=== PATIENT | female | born 1965 | race Caucasian/White ===

== ENCOUNTER 2022-11-04 09:13 | Observation (INO) | payer OTHER, SELFPAY ==
[2022-11-04] VITALS (9 sets, daily range): BP systolic 121–136; BP diastolic 70–77; PULSE 59–84; RESP 14–25; TEMP 36.2–37; O2SAT 95–98; BMI 31.6; BMI 31.0
--- NOTE | 2022-11-04 09:57 | EKG12_ITS ---
Test Reason : Blood Pressure : / mmHG Vent. Rate : 074 BPM Atrial Rate : 074 BPM P-R Int : 132 ms QRS Dur : 084 ms QT Int : 406 ms P-R-T Axes : 055 -01 043 degrees QTc Int : 450 ms Normal sinus rhythm Normal ECG Confirmed by KIRSTIN SANDERSON, KAYE ([id number]), food expeditor OSIEL CALLOWAY ([id number]) on 11/07/2022 1:13:19 PM Referred By: VIRAJ Confirmed By:ELLYN FULTON MD
[2022-11-04 09:58] LABS: Bedside Glucose 152 mg/dL (74-106)
--- NOTE | 2022-11-04 09:59 | EX.ED.DYSGE1 ---
HPI History of Present Illness Chief Complaint: Syncope Detail of Chief Complaint: Syncope Informant: patient Narrative Narrative: Patient presents emerged department with syncopal episode. 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 Patient states that she sat down and had an episode where she became unresponsive. EMS was called. EMS initially noted some hypotension. Patient states that she had a procedure where she had an injection in her hip 4 days ago where she had a similar episode. Patient denies chest pain. She denies recent travel or surgery. No prior episodes of syncope. Patient has had prior hysterectomy. [facility] Medical History Hypothyroid Medical History no medical history Home Medications clonidine HCl 0.2 mg tablet 0.2 mg PO QHS 11/04/22 [History Last Taken 11/03/22] levothyroxine 112 mcg tablet 112 mcg PO DAILY 11/04/22 [History Last Taken 11/04/22] rosuvastatin 10 mg tablet 10 mg PO DAILY 11/04/22 [History Last Taken 11/03/22] terbinafine HCl 250 mg tablet 250 mg PO DAILY 11/04/22 [History Last Taken 11/04/22] Allergy/AdvReac Type Severity Reaction Status Date / Time ciprofloxacin [From Cipro] Allergy Unknown PT UNSURE Verified 11/04/22 09:14 OF REACTION Social History Smoking Status: Never smoker ROS ROS ED Review of Systems ROS Unobtainable: other Constitutional Constitutional ED: Reports lethargy; Denies chills, fever(s), sweats or weight loss Eyes Eyes: Denies blurry vision, change in vision or diplopia ENT ENT ED: Denies rhinorrhea or sore throat Cardiovascular Cardiovascular: Reports racing heartbeat; Denies chest pain or orthopnea Respiratory/Chest Respiratory/Chest: Denies cough, dyspnea, dyspnea on exertion, orthopnea or sputum Gastrointestinal Gastrointestinal: Denies abdominal pain, diarrhea, nausea or vomiting Genitourinary Genitourinary ED: Denies dysuria, hematuria or urinary frequency Musculoskeletal Musculoskeletal: Denies arthralgias, back pain, myalgias or neck pain Integumentary Denies abscess, Abrasions or rash Neurologic Neurologic: Reports other Details: Syncope ; Denies headache(s) or weakness Psychiatric Psychiatric: Denies anxiety, depression or suicidal thoughts Endocrine Endocrinology: Denies polydipsia, polyphagia or polyuria Hematologic/Lymphatic Hematologic/Lymphatic: Denies easy bleeding, easy bruising or lymphadenopathy Allergic/Immunologic Allergic/Immunologic ED: Denies mouth swelling, tongue swelling or urticaria EXAM Physical Exam Const Vital Signs: 11/04/22 09:15 11/04/22 09:17 11/04/22 10:07 Temperature 97.6 F L Temperature Source Temporal Pulse Rate 77 Pulse Rate [Lying] 84 Pulse Rate [Sitting (for 1 minute prior to obtaining)] 78 Respiratory Rate 20 H Respiratory Effort Normal Non-Labored Blood Pressure 128/71 H Blood Pressure [Lying] 132/77 H Blood Pressure [Sitting (for 1 minute prior to obtaining)] 128/76 H Blood Pressure Mean 90 Blood Pressure Mean [Lying] 95 Blood Pressure Mean [Sitting (for 1 minute prior to obtaining)] 93 Pulse Ox 97 Oxygen Delivery Method Room Air 11/04/22 11:29 Temperature Temperature Source Pulse Rate 76 Pulse Rate [Lying] Pulse Rate [Sitting (for 1 minute prior to obtaining)] Respiratory Rate 18 Respiratory Effort Blood Pressure 133/76 H Blood Pressure [Lying] Blood Pressure [Sitting (for 1 minute prior to obtaining)] Blood Pressure Mean 95 Blood Pressure Mean [Lying] Blood Pressure Mean [Sitting (for 1 minute prior to obtaining)] Pulse Ox 97 Oxygen Delivery Method Positive well nourished and well developed General Appearance ED: well developed and NAD HEENT Reports TM's clear and moist mucous membranes normocephalic and atraumatic; Negative for trauma or tenderness Tympanic Membrane ED: Yes TM's clear Eyes PERRL and EOMs intact bilaterally General Eye ED: Negative for pale conjunctiva or scleral icterus Neck no lymphadenopathy, supple and no JVD General: Negative for tenderness Chest Wall inspection of chest normal and palpation of chest normal Chest: Negative for tenderness Resp normal respiratory effort and clear to auscultation bilaterally Effort and Inspection: Negative for respiratory distress or pain with movement Auscultation: Negative for rhonchi, wheezes or diminished lung sounds Cardio regular rate, regular rhythm, S1 normal heart sound, S2 normal heart sound and no murmurs Peripheral Pulses: pulses 2+ throughout GI normal to inspection, nondistended, normoactive bowel sounds, soft to palpation, non-tender, non-distended and no masses Back/Spine no CVA tenderness and no thoracic nor lumbar tenderness Extremity normal to inspection General Extremety ED: Negative for edema General Extremity: Negative for edema Neuro oriented x3, CN's II-XII intact bilaterally, no sensory deficits noted and gait normal Sensorium / Orientation: awake, alert, oriented to person, oriented to place and oriented to time Motor Exam: strength 5/5 throughout and strength abnormal Psych mental status grossly normal Skin no rashes or lesions noted and no wounds MDM MDM MDM Narrative Medical decision making narrative: Patient presents to the emergency department with a syncopal episode. In the differential would be dysrhythmia versus vasovagal episode versus PE versus infectious etiology. IV line established. Patient placed on a lunchroom monitor. EKG obtained arrival showed a sinus rhythm with a rate of 74 bpm with no acute ST segment changes. CBC with differential showed an elevated white count of 12.8 which I suspect is likely related to recent steroid injection in her hip. Troponin was normal. D-dimer was normal. We attempted orthostatic blood pressures but she was too dizzy to stand. She was given a liter normal saline fluid bolus. Clinically there is no evidence of nystagmus therefore I do not suspect benign positional vertigo. She still complains of feeling like her heart is racing at times. Case was discussed with hospitalist will evaluate patient for admission Lab Data Attestation: I reviewed the patient's lab results. Labs: Laboratory Results - last 24 hr 11/04/22 11/04/22 09:30 09:39 WBC 12.8 H RBC 4.79 Hgb 13.9 Hct 43.4 MCV 90.6 MCH 29.0 MCHC 32.0 RDW Std Deviation 45.6 H RDW Coeff of Walter 13.6 Plt Count 330 MPV 9.7 Immature Gran % (Auto) 1.000 H Neut % (Auto) 75.6 H Lymph % (Auto) 13.8 L [place] % (Auto) 8.3 Eos % (Auto) 0.7 Baso % (Auto) 0.6 Absolute Neuts (auto) 9.7 H Absolute Lymphs (auto) 1.77 Nucleated RBC % 0 D-Dimer Quant (PE/DVT) < 0.27 L Sodium 135 L Potassium 4.2 Chloride 104 Carbon Dioxide 25.0 Anion Gap 6 BUN 26 H Creatinine 1.01 Estim Creat Clear Calc 51.45 Est GFR (MDRD) Af Amer 73 Est GFR (MDRD) Non-Af 60 BUN/Creatinine Ratio 25.7 H Glucose 138 H Calcium 8.9 Troponin I High Sens < 3 L POC Glucose 152 H Radiography Diagnostic Testing: Clinical Impression(s) from Imaging Studies Chest X-Ray 11/04/22 10:15 IMPRESSION: Mild increased markings at the left lung base suggestive of either linear atelectasis and/or scarring. Healed left-sided rib fractures. Electronically Signed: Varun Collins MD at 10:52 EDT , 1 view chest x-ray obtained interpreted by myself as no evidence of infiltrate or pneumothorax or acute disease process. Radiology was in agreement however they did note left lung base increased markings suggestive of either linear atelectasis and or scarring. Patient also noted to have healed left-sided rib fractures. EKG Initial EKG: Attestation: I personally reviewed and interpreted this EKG as follows: Comments: Sinus rhythm with a rate of 74 bpm with no acute ST segment changes Discharge Plan Dx/Rx/DC Orders Clinical Impression: Dizziness, Syncope Disposition Disposition: Acute Care [facility] Discharge Date/Time: 11/04/22 12:56
[2022-11-04] MEDS: 0.9% Normal Saline 1,000 ML 1000 ML IV (10:03)
[2022-11-04 10:05] LABS: Absolute Lymphocyte Count 1.77 X10^3/uL (0.83-4.51); Absolute Neutrophil Count 9.7 X10^3/uL (2.0-7.7); Basophil# 0.08 X10^3/uL; Basophil% 0.6 % (0-1); Eosinophil# 0.09 X10^3/uL; Eosinophils% 0.7 % (0-5); Hematocrit 43.4 % (37-47); Hemoglobin 13.9 g/dL (12.0-15.0); Lymphocyte # 1.77 X10^3/ul (0.83-4.51); Lymphocyte % 13.8 % (19-41); Mean Corpuscular Volume 90.6 fL (81-99); Mean Platelet Vol. 9.7 fl (6.2-12.0); Monocyte# 1.07 X10^3/uL; Monocyte% 8.3 % (0-10); NRBC Flagged by Analyzer 0 % (0-5); Neutrophil % 75.6 % (47-70); Platelet Count 330 K/mm3 (150-450); RBC Distribution Width CV 13.6 % (11.6-14.6); RBC Distribution Width SD 45.6 fl (35.1-43.9); Red Blood Count 4.79 M/mm3 (4.2-5.4); White Blood Count 12.8 K/mm3 (4.4-11.0)
--- NOTE | 2022-11-04 10:15 | RAD_ITS ---
STUDY: X-RAY CHEST REASON FOR EXAM: Female, 57 years old. Syncopal episode. TECHNIQUE: Single AP portable view of the chest. COMPARISON: None. FINDINGS: EKG electrodes are seen. Hyperinflation. Mild increased markings at the left lung base suggestive of either linear scarring and/or atelectasis. There is no demonstrated pleural abnormality. Normal size heart. Normal mediastinum and yumi. Normal visualized pulmonary arteries. Normal visualized aortic arch and descending thoracic aorta. Normal visualized thoracic spine. Healed left rib fractures. There is no demonstrated abnormality of the visualized soft tissue structures of the upper abdomen. RAD/Chest 1 View (Portable) IMPRESSION: Mild increased markings at the left lung base suggestive of either linear atelectasis and/or scarring. Healed left-sided rib fractures. Electronically Signed: Varun Collins MD at 10:52 EDT ,
[2022-11-04 10:22] LABS: Anion Gap 6 (5-15); BUN 26 mg/dL (7-18); BUN/Creat Ratio 25.7 RATIO (10-20); Calcium,Total 8.9 mg/dL (8.5-10.1); Chloride 104 mmol/L (98-107); Creatinine, Serum 1.01 mg/dL (0.55-1.02); EST Glomerular Filtration Rate 60 mL/min (>60); Est Glom Filt Rate - Afr Amer 73 mL/min (>60); Estimated Creatinine Clearance 51.45 ml/min; Glucose 138 mg/dL (74-106); Potassium 4.2 mmol/L (3.5-5.1); Sodium Level 135 mmol/L (136-145); Troponin-I HS < 3 pg/mL (3.0-54.0)
[2022-11-04 10:32] LABS: D-Dimer Quantitative (DVT/PE) < 0.27 FEU/ug/m (0.27-0.49)
--- NOTE | 2022-11-04 12:46 | HP.PCM.HOS_ITS ---
HPI - General General Date of Admission: 11/04/22 Date of Service: 11/04/22 Chief Complaint: Lightheadedness, syncope HPI Narrative BISHNU GEE, is a 57 F with history of heart flashes on clonidine and hypothyroidism on Synthroid who presented to [facility] 11/04/2022 due to a syncopal episode. She endorses she was in her usual health until 1 week ago when she went to get a hip injection, she was laying down and while they were injecting her hip she began to feel lightheaded and dizzy and this persisted for roughly 10 minutes and then got her valdemar kasandra and a cool washcloth and it resolved. Then today she was at work standing up trying vaccines and began to feel lightheaded and dizzy and unwell and also felt like her heart was flip-flopping and she sat down on a chair and then lost consciousness for several seconds. She was told that her blood pressure was low and she is unsure how low. In the ED she was hesitant to do orthostatic vital signs and stand up due to being concerned she may be dizzy slowly laying and sitting were obtained which were negative. Patient given fluids and hospitalist consulted for admission. Patient evaluated with family at bedside and she reports presently not feeling like that. Reports occasionally feeling her heart skipped beats but before this and the previous episode she has never had any racing heart or problem with dizziness. Denies any chest pain or shortness of breath. Has not changed her caffeine intake, no new medicines or supplements. Denies alcohol, drugs. [facility] Medical History (Updated 11/04/22 @ 12:[address] Tamiko Callejas MD) Hypothyroid Medical History no medical history Home Medications clonidine HCl 0.2 mg tablet 0.2 mg PO QHS 11/04/22 [History Last Taken 11/03/22] levothyroxine 112 mcg tablet 112 mcg PO DAILY 11/04/22 [History Last Taken 11/04/22] rosuvastatin 10 mg tablet 10 mg PO DAILY 11/04/22 [History Last Taken 11/03/22] terbinafine HCl 250 mg tablet 250 mg PO DAILY 11/04/22 [History Last Taken 11/04/22] Allergy/AdvReac Type Severity Reaction Status Date / Time ciprofloxacin [From Cipro] Allergy Unknown PT UNSURE Verified 11/04/22 09:14 OF REACTION Social History Smoking Status: Never smoker ROS ROS Narrative General: Denies fever/chills HENT: Denies headache, denies stuffy nose, denies sore throat EYES: Denies changes in vision Resp: Denies cough, denies shortness of breath Cardiac: Denies chest pain GI: Denies abdominal pain, denies changes in bowel, denies nausea/vomiting : Denies changes in urination Extremity: Denies swelling MSK: Denies weakness Neuro: Denies any numbness/tingling Heme: Denies any bleeding or bruising Skin: Denies rashes Psychiatric: No complaints voiced Vital Signs Vital Signs Vital Signs: 11/04/22 09:15 11/04/22 09:17 11/04/22 10:07 Temperature 97.6 F L Temperature Source Temporal Pulse Rate 77 Pulse Rate [Lying] 84 Pulse Rate [Sitting (for 1 minute prior to obtaining)] 78 Respiratory Rate 20 H Respiratory Effort Normal Non-Labored Blood Pressure 128/71 H Blood Pressure [Lying] 132/77 H Blood Pressure [Sitting (for 1 minute prior to obtaining)] 128/76 H Blood Pressure Mean 90 Blood Pressure Mean [Lying] 95 Blood Pressure Mean [Sitting (for 1 minute prior to obtaining)] 93 Pulse Ox 97 Oxygen Delivery Method Room Air 11/04/22 11:29 11/04/22 11:49 11/04/22 12:10 Temperature 97.2 F L Temperature Source Temporal Pulse Rate 76 78 77 Pulse Rate [Lying] Pulse Rate [Sitting (for 1 minute prior to obtaining)] Respiratory Rate 18 17 25 H Respiratory Effort Blood Pressure 133/76 H 136/70 H 136/70 H Blood Pressure [Lying] Blood Pressure [Sitting (for 1 minute prior to obtaining)] Blood Pressure Mean 95 92 92 Blood Pressure Mean [Lying] Blood Pressure Mean [Sitting (for 1 minute prior to obtaining)] Pulse Ox 97 97 98 Oxygen Delivery Method Room Air Room Air Weight Weight: 81 kg Body Mass Index (BMI) 31.6 Physical Exam Narrative General: Alert, oriented, no apparent distress HEENT: Atraumatic, normocephalic Eyes: Anicteric, normal conjunctiva, extraocular movements grossly intact Neck: Supple Respiratory: Clear to auscultation bilaterally, normal respiratory effort Cardiovascular: Regular rate and rhythm GI: Soft, nontender, nondistended Extremities: No edema Musculoskeletal: Moving all extremities Neuro: No overt focal neurological deficits Skin: No rashes appreciated Psych: Cooperative Results Lab / Micro Data 11/04/22 09:30 11/04/22 09:30 Labs: Laboratory Results - last 24 hr 11/04/22 09:30: WBC 12.8 H, RBC 4.79, Hgb 13.9, Hct 43.4, MCV 90.6, MCH 29.0, MCHC 32.0, RDW Std Deviation 45.6 H, RDW Coeff of Walter 13.6, Plt Count 330, MPV 9.7, Immature Gran % (Auto) 1.000 H, Neut % (Auto) 75.6 H, Lymph % (Auto) 13.8 L , [place] % (Auto) 8.3, Eos % (Auto) 0.7, Baso % (Auto) 0.6, Absolute Neuts (auto) 9.7 H, Absolute Lymphs (auto) 1.77, Nucleated RBC % 0, D-Dimer Quant (PE/DVT) < 0.27 L, Sodium 135 L, Potassium 4.2, Chloride 104, Carbon Dioxide 25.0, Anion Gap 6, BUN 26 H, Creatinine 1.01, Estim Creat Clear Calc 51.45, Est GFR (MDRD) Af Amer 73, Est GFR (MDRD) Non-Af 60, BUN/Creatinine Ratio 25.7 H, Glucose 138 H , Calcium 8.9, Troponin I High Sens < 3 L 11/04/22 09:39: POC Glucose 152 H Radiology Impression Chest X-Ray 11/04/22 10:15 IMPRESSION: Mild increased markings at the left lung base suggestive of either linear atelectasis and/or scarring. Healed left-sided rib fractures. Electronically Signed: Varun Collins MD at 10:52 EDT , Assessment & Plan Assessment/Plan (1) Syncope: (2) Hypothyroid: PLAN: Plan #Lightheadedness and syncopal episode -Patient lost consciousness for several seconds and was told her blood pressure was low and also felt her heart flip-flop -Differential could be arrhythmia or vasovagal as this happened when she was both laying down and standing -Chest x-ray with some mild increased markings that may be atelectasis or scarring Troponin D-dimer normal -EKG sinus rhythm with rate of [address] segment changes -Admit to telemetry -We will obtain echocardiogram -Check TSH -Unable to obtain orthostats this patient refused in ED due to concern she would get dizzy #Hot flashes -Takes clonidine at home, will continue this nightly #Hypothyroidism -Continue Synthroid #DVT ppx: Low risk, ambulatory Tamiko Callejas MD Time spent in the patient's overall evaluation,decision-making process, review of diagnostic data, adjustment of management, discussion with other providers, nursing nursing and ancillary staff involved in patient's care documentation, 56 minutes Charges/Coding Visit Charges Inpatient E&M: 13007 Init Hosp L2
--- NOTE | 2022-11-04 13:34 | ECHOD_ITS ---
Reason For Study: SYNCOPE Procedure This was a 2D Doppler, Color Flow transthoracic echocardiogram. Exam performed portable in patient room. Left Ventricle Normal LV size. The estimated ejection fraction is 60 %. No evidence for diastolic dysfunction. No regional wall motion abnormalities noted. Right Ventricle Normal RV size. Normal systolic function. Atria Normal left atrium. Normal right atrium. No doppler evidence for ASD. Mitral Valve There is no mitral valve stenosis. Trivial mitral valve insufficiency. Tricuspid Valve There is no tricuspid stenosis. Trivial tricuspid valve insufficiency. Unable to estimate RV systolic pressure due to insufficient tricuspid regurgitant envelope. Aortic Valve Trisinus/trileaflet aortic valve. There is no aortic stenosis. No aortic valve insufficiency. Pulmonic Valve There is no pulmonic valvular stenosis. No pulmonic valve insufficiency. Great Vessels Normal aortic root. Pericardium/Pleural No pericardial effusion. MMode/2D Measurements & Calculations LVIDd: 4.1 cm IVSd: 0.73 cm Ao root diam: 3.2 cm LVIDs: 2.8 cm LVPWd: 0.84 cm RVDd: 3.1 cm FS: 33.1 % LAV(MOD-bp): 37.7 ml LVAd ap4: 27.6 cm2 SV(MOD-sp4): 52.2 ml LAV(MOD-bp) Indexed: 20.6 ml/m2 LVLd ap4: 7.6 cm LAV(MOD-sp2): 39.2 ml EDV(MOD-sp4): 79.5 ml LAV(MOD-sp4): 36.0 ml EDV(sp4-el): 85.0 ml LVAs ap4: 13.3 cm2 LVLs ap4: 5.7 cm ESV(MOD-sp4): 27.3 ml ESV(sp4-el): 26.4 ml EF(MOD-sp4): 65.6 % EF(sp4-el): 68.9 % SV(sp4-el): 58.6 ml LA A4 area: 14.4 cm2 LA dimension(2D): 3.3 cm RA A4 area: 12.1 cm2 Time Measurements MV dec time: 0.22 sec Doppler Measurements & Calculations MV E max tristian: 92.8 cm/sec Lat Peak E' Tristian: 18.2 cm/sec Med Peak E' Tristian: 13.5 cm/sec MV A max tristian: 95.3 cm/sec E/E' lat: 5.1 E/E' med: 6.9 MV E/A: 0.97 Ao V2 max: 122.8 cm/sec LV V1 max: 111.4 cm/sec PA V2 max: 93.7 cm/sec Ao max P.0 mmHg LV V1 max P.0 mmHg TR max tristian: 234.4 cm/sec TR max P.0 mmHg ECHO/Echo Complete Interpretation Summary The estimated ejection fraction is 60 %. No evidence for diastolic dysfunction. Trivial mitral valve insufficiency. Ordering Physician: Tamiko Callejas Referring Physician: ROBLES FRIED Performed By: Raquel Avelar, AVRIL
--- NOTE | 2022-11-04 17:19 | PCM.HOSP.N ---
Hospitalist Note Patient's echo fairly unremarkable, has sinus arrhythmia on telemetry and had burst of fast heart rate with QRS complex with different morphology on same strip, patient had no syncopal episode here in hospital during this brief burst but concerned that the 2 lightheaded episodes with this most recent episode with brief loss of consciousness may be arrhythmia related. Heart rate back and rhythm so this was not captured on EKG but was seen briefly on telemetry. Cardiology consulted
[2022-11-04] MEDS: Atorvastatin Calcium 20 MG Tablet PO (22:40)
[2022-11-04] MEDS: cloNIDine HCl 0.2 MG Tablet PO (22:40)
[2022-11-05 03:30] VITALS: BP 125/81; PULSE 62; RESP 18; TEMP 36.5; O2SAT 99
[2022-11-05] MEDS: Levothyroxine 112 MCG Tablet PO (06:07)
[2022-11-05 07:19] LABS: Absolute Lymphocyte Count 1.77 X10^3/uL (0.83-4.51); Basophil# 0.05 X10^3/uL; Basophil% 0.6 % (0-1); Eosinophil# 0.14 X10^3/uL; Eosinophils% 1.8 % (0-5); Lymphocyte # 1.77 X10^3/ul (0.83-4.51); Lymphocyte % 22.8 % (19-41); Mean Corp Hgb Conc 32.5 g/dL (32-36); Mean Corpuscular Hgb 29.5 pg (27.0-32.0); Mean Corpuscular Volume 90.7 fL (81-99); Mean Platelet Vol. 9.7 fl (6.2-12.0); Monocyte# 0.78 X10^3/uL; NRBC Flagged by Analyzer 0 % (0-5); Neutrophil % 64.4 % (47-70); Platelet Count 304 K/mm3 (150-450); RBC Distribution Width CV 14.1 % (11.6-14.6); RBC Distribution Width SD 46.9 fl (35.1-43.9); Red Blood Count 4.41 M/mm3 (4.2-5.4); White Blood Count 7.8 K/mm3 (4.4-11.0)
[2022-11-05 08:11] LABS: ALB/GLOB Ratio 0.9 RATIO (0.9-2.4); AST(SGOT) 20 U/L (15-37); Alanine Aminotransfer ALT/SGPT 35 U/L (13-56); Albumin, Serum 3.1 g/dL (3.2-5.0); Alkaline Phosphatase 70 U/L (45-117); Anion Gap 6 (5-15); BUN 15 mg/dL (7-18); BUN/Creat Ratio 19.9 RATIO (10-20); Calcium,Total 8.7 mg/dL (8.5-10.1); Chloride 108 mmol/L (98-107); Creatinine, Serum 0.75 mg/dL (0.55-1.02); EST Glomerular Filtration Rate 84 mL/min (>60); Est Glom Filt Rate - Afr Amer 102 mL/min (>60); Estimated Creatinine Clearance 69.28 ml/min; Globulin 3.6 g/dL (2.2-4.2); Glucose 95 mg/dL (74-106); Magnesium 2.5 mg/dL (1.6-2.6); Potassium 4.3 mmol/L (3.5-5.1); Protein, Total 6.7 g/dL (6.4-8.2); Sodium Level 137 mmol/L (136-145); Thyroid Stim Hormone (TSH) 0.21 uIU/mL (0.358-3.74)
[2022-11-05 09:20] VITALS: BP 118/75; PULSE 76; RESP 14; TEMP 36.3; O2SAT 96
[2022-11-05] MEDS: Acetaminophen 325 MG Tablet 650 MG PO (09:31)
--- NOTE | 2022-11-05 12:12 | DCINST_ITS ---
Discharge Instructions Diet Discharge Diet: No restrictions Activity Discharge Activity: Return to Normal Activity Weight Bearing Status: Weight bearing as tolerated Dressing / Incision Call your doctor if you observe: Fever of 101 or Higher, Coldness, Increased Pain, Numbness or Tingling, Change in Color, Inability to urinate, Inability to have a bowel movement, Using more than 1 pad per hour, Shortness of breath, Dizziness, Fainting spells, Swelling in the ankles, Chest pain, Prolonged hiccupping, Increased palpitations (irregular heartbeat) and Calf discomfort Follow Up Care When: IN 2 WEEKS Test Results: Test results from this visit will be discussed in further detail at your follow- up appointment, if applicable. Discharge Plan Admission Admit Date/Time: 11/04/22 11:48 Primary Reason for Your Visit: Syncope Attending Provider: Delano Bain Primary Care Provider: Erick Ravi Consulting Providers: Bruno Galdamez; Tamiko Callejas Instructions Patient Instructions: ED Dizziness, Uncertain Cause, ED Fainting, Uncertain Cause Additional Instructions / Restrictions: Follow-up [facility] cardiology in 1 to 2 weeks. Need 30-day event monitor. Patient has bradycardia, sometimes PVCs with accelerated rhythm probably due to clonidine. Therefore clonidine was discontinued. Discharge Orders/Prescriptions Prescriptions: New azithromycin [Zithromax Z-Caio] 250 mg tablet See Rx Instructions .ROUTE .COMPLEX Qty: 6 0RF Rx Instructions: For 250 mg dose pack: take 500 mg today (day 1), then 250 mg for 4 days (days 2-5) Continued levothyroxine 112 mcg tablet 112 mcg PO DAILY rosuvastatin 10 mg tablet 10 mg PO DAILY terbinafine HCl 250 mg tablet 250 mg PO DAILY Discontinued clonidine HCl 0.2 mg tablet 0.2 mg PO QHS Other Ambulatory Orders: 30 Day Event Recorder Preventi (Urgent) Timeframe: 1 Day Facility: [facility] - Location: Cardiovascular Services Ordered By: Dr. Delano Bain Referrals / Follow Up: Erick Ravi DO [Primary Care Provider] - Disposition Disposition (needs filled in before D/C Order can be placed): Home, Self Care
--- NOTE | 2022-11-05 14:01 | PCM.DC.SUM ---
Providers Date of Admission: 11/04/22 Date of Discharge: 11/05/22 Primary Care Physician: Dr. Erick Ravi, Consultations 11/04/22 17:19 Consult: Cardiology Routine Consulting Provider: Bruno Galdamez Reason for Consult: Sinus arrhythmia, fast burst on tele as well, here w/ lightheaded and synco EMERGENT Consult: No MD Notified: Yes Date Notified: 11/04/22 Time Notified: 18:09 Method of Notification: Text Comments:: Concern lightheaded episodes may be d/t arrhytmia Reason For Visit: SYNCOPE Diagnosis Discharge Diagnosis (1) Syncope: Status: Acute Code(s): R55 - Syncope and collapse (2) Hypothyroid: Status: Acute Code(s): E03.9 - Hypothyroidism, unspecified Plan 67-year-old female admitted with dizziness, lightheadedness and then 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 She also felt irregular heartbeat or palpitation. Syncope lasted for seconds to a few minutes. She had similar symptoms but did not pass out about 4 days ago and she had hip injection. 1. Syncope most likely vasovagal or medication induced: Patient is was admitted on PCU telemetry. On clonidine 0.2 mg daily at bedtime since 2006. Advised to discontinue but patient is status this controls her perimenopausal symptoms. Patient also stated she had hypotension. During hospital course, monitor and storage bin tender shows had bradycardia and sometimes, sinus tachycardia with PVCs more than 120 bpm. Does not have chest pain or shortness of breath. Her father had RI and because of that. Discussed with dry cleaner presser and he saw the patient. He agreed on starting low-dose beta-angel metoprolol succinate 25 mg daily. 30-day event monitor. 2D echo was unremarkable. Patient insurance with [facility] therefore prefers to follow-up with [facility] dry cleaner presser. 2. Hypothyroidism:TSH also suppressed at 0.21 therefore levothyroxine dose decreased to 88 mcg daily. Prescription for levothyroxine given. 3. Complain of acute sinusitis: Prescription for Z-Caio given. Discharge medication reconciliation done. Discharge follow-up instructions completed. Discharge process discussed with the patient and all questions were answered to patient's satisfaction. Total time spent, exact 35 minutes on discharge meds reconciliation, examination, coordination of care with nurses and ancillary staff, review of imaging and blood test and discussion with the patient on follow-up instructions. Medications at Discharge Home Medications rosuvastatin 10 mg tablet 10 mg PO DAILY 11/04/22 terbinafine HCl 250 mg tablet 250 mg PO DAILY 11/04/22 azithromycin 250 mg tablet (Zithromax Z-Caio) See Rx Instructions PO .COMPLEX #6 tabs 11/05/22 clonidine HCl 0.2 mg tablet 0.2 mg PO QHS #0 tabs 11/05/22 levothyroxine 88 mcg tablet 88 mcg PO DAILY #30 tabs 11/05/22 metoprolol succinate 25 mg tablet,extended release 24 hr 25 mg PO DAILY #30 tabs 11/05/22 Physical Exam Narrative Seen and examined. Does not have chest pain or shortness of breath. Wants to go home. ekg monitor tech reviewed and discussed with the patient. General: Alert, Oriented x3, Cooperative HEENT: Atraumatic, PERRLA, EOMI, Normocephalic Oral: No Gingival or Mucosal Lesions/ Ulcerations Neck: Supple, No JVD, Negative Carotid Bruits Lungs: Air entry diminished in bilateral lung bases. No crepitation/rhonchi Cardiovascular: Sinus tachycardia, Normal S1, Normal S2, No murmurs Abdomen: Bowel Sounds Present, Soft, Non Tender, Non-Distended : No renal angle tenderness. No suprapubic tenderness. Extremities: No edema, Capillary Refill Less than 3 Seconds Skin: No rashes, No breakdown Musculoskeletal: No Tenderness to Palpation of Joints or Extremities Neurological: Cranial nerves II-XII grossly intact, DTR 2+/4 and Symmetrical, Neuro grossly intact Psych/Mental Status: Normal Affect, Appropriate. Weight / BMI Weight Weight: 175 lb 4.28 oz Body Mass Index (BMI) 31.0 ABG / Lab / Microbiology Data 11/05/22 05:55 11/05/22 06:35 Laboratory: Laboratory Results - last 24 hr 11/05/22 05:55: WBC 7.8, RBC 4.41, Hgb 13.0, Hct 40.0, MCV 90.7, MCH 29.5, MCHC 32.5, RDW Std Deviation 46.9 H, RDW Coeff of Walter 14.1, Plt Count 304, MPV 9.7, Immature Gran % (Auto) 0.400, Neut % (Auto) 64.4, Lymph % (Auto) 22.8, [place] % (Auto) 10.0, Eos % (Auto) 1.8, Baso % (Auto) 0.6, Absolute Neuts (auto) 5.0, Absolute Lymphs (auto) 1.77, Nucleated RBC % 0 11/05/22 06:35: Sodium 137, Potassium 4.3, Chloride 108 H, Carbon Dioxide 23.0, Anion Gap 6, BUN 15, Creatinine 0.75, Estim Creat Clear Calc 69.28, Est GFR (MDRD) Af Amer 102, Est GFR (MDRD) Non-Af 84, BUN/Creatinine Ratio 19.9, Glucose 95, Calcium 8.7, Magnesium 2.5, Total Bilirubin 0.20, AST 20, ALT 35, Alkaline Phosphatase 70, Total Protein 6.7, Albumin 3.1 L, Globulin 3.6, Albumin/Globulin Ratio 0.9, TSH 0.21 L Radiography Diagnostic Testing: Radiology Impression Echocardiogram 11/04/22 13:34 Interpretation Summary The estimated ejection fraction is 60 %. No evidence for diastolic dysfunction. Trivial mitral valve insufficiency. Ordering Physician: Tamiko Callejas Referring Physician: ERICK RAVI Performed By: Raquel Avelar RDCS D/C Instructions Discharge Diet: No restrictions Weight Bearing Status: Weight bearing as tolerated Call your doctor if you observe: Fever of 101 or Higher, Coldness, Increased Pain, Numbness or Tingling, Change in Color, Inability to urinate, Inability to have a bowel movement, Using more than 1 pad per hour, Shortness of breath, Dizziness, Fainting spells, Swelling in the ankles, Chest pain, Prolonged hiccupping, Increased palpitations (irregular heartbeat) and Calf discomfort When: IN 2 WEEKS Meaningful Use Info Meaningful Use Diagnoses (Choose all that apply): None applicable Discharge Plan Admission Admit Date/Time: 11/04/22 11:48 Primary Reason for Your Visit: Syncope Attending Provider: Delano Bain Primary Care Provider: Erick Ravi Consulting Providers: Bruno Galdamez; Tamiko Callejas Instructions Patient Instructions: ED Dizziness, Uncertain Cause, ED Fainting, Uncertain Cause Additional Instructions / Restrictions: Follow-up [facility] cardiology in 1 to 2 weeks. Need 30-day event monitor. Patient has bradycardia, sometimes PVCs with accelerated rhythm probably due to clonidine. Therefore clonidine was discontinued. Discharge Orders/Prescriptions Prescriptions: New azithromycin [Zithromax Z-Caio] 250 mg tablet See Rx Instructions .ROUTE .COMPLEX Qty: 6 0RF Rx Instructions: For 250 mg dose pack: take 500 mg today (day 1), then 250 mg for 4 days (days 2-5) metoprolol succinate 25 mg tablet extended release 24 hr 25 mg PO DAILY Qty: 30 2RF Rx Instructions: Hold for heart less than 50 or systolic blood pressure less than 100 mmHg. levothyroxine 88 mcg tablet 88 mcg PO DAILY Qty: 30 2RF clonidine HCl 0.2 mg Tablet 0.2 mg PO QHS Qty: 0 0RF Continued rosuvastatin 10 mg tablet 10 mg PO DAILY terbinafine HCl 250 mg tablet 250 mg PO DAILY Discontinued clonidine HCl 0.2 mg tablet 0.2 mg PO QHS levothyroxine 112 mcg tablet 112 mcg PO DAILY Other Ambulatory Orders: 30 Day Event Recorder Preventi (Urgent) Timeframe: 1 Day Facility: [facility] - Location: Cardiovascular Services Ordered By: Dr. Delano Bain Referrals / Follow Up: Erick Ravi DO [Primary Care Provider] - Disposition Disposition (needs filled in before D/C Order can be placed): Home, Self Care Charges/Coding Visit Charges Inpatient E&M: 03858 Disch Hosp >30min
--- NOTE | 2022-11-05 15:32 | PCM.CONS.C ---
Assessment & Plan Assessment/Plan (1) Syncope: QUALIFIERS: Syncope type: unspecified Qualified Code(s): R55 - Syncope and collapse PLAN: Appears to be vasovagal. We will decrease her Synthroid dose. Discussed stopping the clonidine. Patient prefers to continue that. We will add low-dose beta-angel. Also recommend 30-day event monitor. 2D echo was unremarkable. Patient wants to follow-up with the [facility] and was advised to follow-up with her oracle brm developer as well there. HPI Consult Data Date of Consult: 11/05/22 HPI Narrative Reason for Consultation: Syncope HPI Narrative: BISHNU GEE, is a 57 F who presents after a syncopal episode. 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 She felt her heart racing and briefly passed out. About 4 days prior to this she apparently had a hip injection and had lightheadedness at that time as well. She has history of hypothyroidism and is on levothyroxine 112 mcg/day which has been her dose for at least a year. Her TSH level during this admission was low. She is also on clonidine that she takes for hot flashes. She has been on the same dose since 2006 and states that her clonidine helps her significantly with her hot flashes. Prior to these episodes she has not had any episode of syncope. Patient was monitored in the PCU. She did not have any significant SVT, V. tach or pauses. Review of systems: All systems reviewed. All else is negative except in HPI. [facility] Medical History (Updated 11/05/22 @ 15:[address] Bruno Galdamez MD) Hypothyroid Medical History no medical history Home Medications rosuvastatin 10 mg tablet 10 mg PO DAILY 11/04/22 [History Last Taken 11/03/22] terbinafine HCl 250 mg tablet 250 mg PO DAILY 11/04/22 [History Last Taken 11/04/22] azithromycin 250 mg tablet (Zithromax Z-Caio) See Rx Instructions PO .COMPLEX #6 tabs 11/05/22 [Rx Last Taken Unknown] clonidine HCl 0.2 mg tablet 0.2 mg PO QHS #0 tabs 11/05/22 [Rx Last Taken Unknown] levothyroxine 88 mcg tablet 88 mcg PO DAILY #30 tabs 11/05/22 [Rx Last Taken Unknown] metoprolol succinate 25 mg tablet,extended release 24 hr 25 mg PO DAILY #30 tabs 11/05/22 [Rx Last Taken Unknown] Allergy/AdvReac Type Severity Reaction Status Date / Time ciprofloxacin [From Cipro] Allergy Unknown PT UNSURE Verified 11/04/22 09:14 OF REACTION Social History Smoking Status: Never smoker Physical Exam Const alert and oriented x3 HEENT normocephalic Eyes no scleral icterus Resp normal respiratory effort Cardio regular rate Extremity no pedal edema Psych mental status grossly normal Risk Stratification Risk Stratification Applicable: No Charges/Coding Visit Charges Inpatient E&M: 32897 Init Hosp L2 Objective Data Vital Signs: Vital Signs Temp Pulse Resp BP Pulse Ox O2 Del Method 97.3 F L 76 14 118/75 96 Room Air 11/05/22 09:20 11/05/22 09:20 11/05/22 09:20 11/05/22 09:20 11/05/22 09:20 11/05/22 14:00 Oxygen Delivery Method Room Air Weight: 175 lb 4.28 oz Body Mass Index (BMI) 31.0 Intake & Output: Intake and Output for Last 24 Hours 11/03/22 11/04/22 11/05/22 23:59 23:59 23:59 Intake Total 1300 / 1300 300 / 300 Balance 1300 / 1300 300 / 300 Lab / Micro Data 11/05/22 05:55 11/05/22 06:35 Labs: Laboratory Results - last 24 hr 11/05/22 05:55: WBC 7.8, RBC 4.41, Hgb 13.0, Hct 40.0, MCV 90.7, MCH 29.5, MCHC 32.5, RDW Std Deviation 46.9 H, RDW Coeff of Walter 14.1, Plt Count 304, MPV 9.7, Immature Gran % (Auto) 0.400, Neut % (Auto) 64.4, Lymph % (Auto) 22.8, [place] % (Auto) 10.0, Eos % (Auto) 1.8, Baso % (Auto) 0.6, Absolute Neuts (auto) 5.0, Absolute Lymphs (auto) 1.77, Nucleated RBC % 0 11/05/22 06:35: Sodium 137, Potassium 4.3, Chloride 108 H, Carbon Dioxide 23.0, Anion Gap 6, BUN 15, Creatinine 0.75, Estim Creat Clear Calc 69.28, Est GFR (MDRD) Af Amer 102, Est GFR (MDRD) Non-Af 84, BUN/Creatinine Ratio 19.9, Glucose 95, Calcium 8.7, Magnesium 2.5, Total Bilirubin 0.20, AST 20, ALT 35, Alkaline Phosphatase 70, Total Protein 6.7, Albumin 3.1 L, Globulin 3.6, Albumin/Globulin Ratio 0.9, TSH 0.21 L Cardiology Labs/Tests 11/05/22 05:55: WBC 7.8, RBC 4.41, Hgb 13.0, Hct 40.0, MCV 90.7, MCH 29.5, MCHC 32.5, Plt Count 304, MPV 9.7, Immature Gran % (Auto) 0.400, Neut % (Auto) 64.4, Lymph % (Auto) 22.8, [place] % (Auto) 10.0, Eos % (Auto) 1.8, Baso % (Auto) 0.6, Absolute Neuts (auto) 5.0, Nucleated RBC % 0 11/05/22 06:35: Sodium 137, Potassium 4.3, Chloride 108 H, Carbon Dioxide 23.0, Anion Gap 6, BUN 15, Creatinine 0.75, Est GFR (MDRD) Af Amer 102, Est GFR (MDRD) Non-Af 84, BUN/Creatinine Ratio 19.9, Glucose 95, Calcium 8.7, Magnesium 2.5, Total Bilirubin 0.20 Rhythm: EKG: ECHO: Stress Test: Cardiac Cath: PCI: CT Surgery: Holter monitor: EPS: PPM: CXR: Chest CT Scan: Radiography Diagnostic Testing: Radiology Impression Echocardiogram 11/04/22 13:34 Interpretation Summary The estimated ejection fraction is 60 %. No evidence for diastolic dysfunction. Trivial mitral valve insufficiency. Ordering Physician: Tamiko Callejas Referring Physician: ROBLES FRIED Performed By: Raquel Avelar RDCS
== END 2022-11-05 14:01 | disposition home or self-care (01) ==
LOC: ED 11:43 → PCU 11-05 07:20
PROVIDERS: Admitting Provider Internal Medicine; Emergency Provider Emergency Medicine; PCP Student in an Organized Health Care Education/Training Program; Visit Provider Internal Medicine
DX: R55 Syncope and collapse (principal); E03.9 Hypothyroidism, unspecified; Z79.890 Hormone replacement therapy; Z79.899 Other long term (current) drug therapy; N95.1 Menopausal and female climacteric states
CPT/HCPCS: 71045; 80048; 80053; 82962; 83735; 84443; 84484; 85025; 85379; 93005; 93306; 96360; 96361; 99221; 99285; J7030; A4216; G0378